=== PATIENT | male | born 1980 | race Caucasian/White ===

== ENCOUNTER 2016-12-07 00:10 | Emergency (ER) | payer SELFPAY ==
[2016-12-07] MEDS ORDERED: HYDROcodone/ACETAMINOPHEN 1 EACH TABLET PO ONE (00:36)
[2016-12-07] MEDS ORDERED: HYDROcodone/ACETAMINOPHEN 1 EACH TABLET ONE (00:41)
[2016-12-07] MEDS ORDERED: PENICILLIN V POTASSIUM 250 MG TABLET PO ONE (00:45)
[2016-12-07] MEDS ORDERED: PENICILLIN V POTASSIUM 250 MG TABLET ONE (00:46)
--- NOTE | 2016-12-07 00:48 | ERNOTE ---
ENT HPI Date of Service: 12/07/16 Presenting Symptoms: dental pain Time Seen by Provider: 12/07/16 00:33 Source: patient - Immun/Allergies/Home Medications Immunizations: IMMUNIZATION HX Immunizations Up to Date Yes History of Influenza Vaccine No Hx Pneumococcal Vaccination No Allergies/Adverse Reactions: Allergies Allergy/AdvReac Type Severity Reaction Status Date / Time No Known Allergies Allergy Verified 12/07/16 00:28 Home Medications: HOME MEDICATIONS HYDROcodone/ACETAMINOPHEN [Immaculata 5-325] 1 each PO Q6H PRN #10 tablet 12/07/16 [ Last Taken Unknown] Ibuprofen 800 mg PO BID PRN 12/07/16 [Last Taken Unknown] Penicillin V Potassium 500 mg PO Q6H #40 tablet 12/07/16 [Last Taken Unknown] - History of Present Illness Narrative: This is a 36-year-old male who comes to the emergency department with a left upper incisor tooth pain which started around 1:00. He reports he has had a filling which fell out months ago. He was having a bit of pain a few months back, 2 or 3 months, but that seemed to get better. He doesn't remember any specific injury or damage to the tooth today when the pain started. He denies fever or chills. He does have sensitivity to the tooth next to it no other complaints Review of Systems - Review of Systems Constitutional: Present: no symptoms reported EYE: Present: no symptoms reported ENT: Present: See HPI Respiratory: Present: no symptoms reported Cardiology: Present: no symptoms reported Gastrointestinal/Abdominal: Present: no symptoms reported Genitourinary: Present: no symptoms reported Musculoskeletal: Present: no symptoms reported Skin: Present: no symptoms reported Neurological: Present: no symptoms reported Endocrine: Present: no symptoms reported Hematologic/Lymphatic: Present: no symptoms reported Psych: Present: no symptoms reported All Other Systems: All systems neg except as marked - Patient's Past Medical History Patient History - Medical: No pertinent hx Patient History - Cardiac/Respiratory: No pertinent hx Patient History - Cancer: No Hx of Cancer Patient History - Surgical Procedures: No surgical history Patient History - Other: None - Social History Living Situations: home Abuse History: No History of abuse Psych History: No pertinent hx Smoking Status: Current every day smoker Have you smoked in the past 12 months: Yes Do you dip or chew tobacco: No Alcohol Use: rarely Drug Use: none - Immunizations Immunizations Up to Date: Yes Hx Pneumococcal Vaccination: No History of Influenza Vaccine: No Physical Exam - Physical Exam General Appearance: Present: wd/wn, alert, other Head Exam: Present: normal inspection, no evidence of injury - patient appears in mild pain distress Eye Exam: Normal inspection: bilateral, PERRL: bilateral, EOMI: bilateral Ears, Nose, Throat: Present: other - patient has multiple dental caries. The left incisor has one on the buccal aspect at the gumline. This tooth is exquisitely tender to percussion. The tooth just to the left of it is also sensitive. Neck: Present: normal inspection, nontender Respiratory: Present: no respiratory distress, normal breath sounds, lungs clear Cardiovascular/Chest: Present: regular rate, rhythm, no murmur, normal peripheral pulses Gastrointestinal/Abdominal: Present: normal bowel sounds Skin Exam: Present: normal color Lymphatic Exam: Present: no adenopathy ED Progress - Vital Signs Patient's Vital Signs:: I have reviewed the patient's vital signs. Vital Signs: Vital Signs 12/07/16 00:28 Temperature 37.6 C H Pulse Rate 68 Respiratory 15 Rate Blood Pressure 144/75 O2 Sat by Pulse 94 Oximetry - Progress/Reassessment Chief Complaint: Dental Problem Procedures Comments: 5 mL of 1:1 solution of 0.5% Marcaine and 1% lidocaine with epinephrine was prepared. I used this to perform and in the orbital nerve block on the left. Patient tolerated procedure well. Says the pain is better but not gone Departure Clinical Impression: Dentalgia - Departure Disposition: Home self-care Condition: Good Instructions: Dental Caries, Dental Caries, [id number] Additional Instructions: We discussed I suspect he had an infection in the living part of the tooth, the pulp. This almost certainly came in through the cavity at the gumline. I've given antibiotics which should help calm things down. This is not a long- term solution. He must get in to see a dentist to get this taken care of or he will continue to have trouble over and over. Take all of the prescribed antibiotics. Do not stop early. He can take the prescribed Immaculata for severe pain. He did take ibuprofen 600 mg every 6 hours. This is 3 tablets of over-the- counter Advil or Motrin. Take this for at least 5 days to help with inflammation. Return to ER for new concerning symptoms Prescriptions: HYDROcodone/ACETAMINOPHEN [Immaculata 5-325] 1 each PO Q6H PRN #10 tablet PRN Reason: Pain Penicillin V Potassium 500 mg PO Q6H #40 tablet
[2016-12-07 01:15] VITALS: BP 166/50
== END 2016-12-07 00:51 | disposition home or self-care (01) ==
LOC: ER 00:10
DX: K08.89 Other specified disorders of teeth and supporting structures (principal); F17.200 Nicotine dependence, unspecified, uncomplicated